=== PATIENT | male | born 2005 | race Hispanic/Latino ===

== ENCOUNTER 2025-03-10 21:23 | Emergency (ER) | payer SELFPAY ==
[~2025-03-10] VITALS: Ht 167.6 cm; Wt 69.4 kg
[2025-03-10] MEDS ORDERED: CHLO50 PO (21:33)
--- NOTE | 2025-03-10 21:34 | ERN ---
ED Note History of Present Illness Stated Complaint: C/O HICCUPS X 8 DAYS Chief Complaint: Hiccups/Singultis Time Seen by MD: 21:29 Dictation: PATIENT IS A 20-YEAR-OLD MALE COMING IN TODAY WITH COMPLAINTS OF INTRACTABLE HICCUPS THAT HE HAS HAD FOR EIGHT DAYS. NO NAUSEA VOMITING NO HISTORY OF DIABETES HYPERTENSION OR METABOLIC SYNDROME. HE HAS STATES HE DOES NOT HAVE A PRIMARY CARE DOCTOR. Allergies: Coded Allergies: No Known Drug Allergies (Unverified Allergy, Unknown, 03/10/25) Past Medical History RN Note Reviewed/Agreed w/PFSH: Yes Review of System Dictation CONSTITUTIONAL: NEGATIVE EXCEPT FOR HPI HEAD/FACE: NEGATIVE EXCEPT FOR HPI EENT: NEGATIVE EXCEPT FOR HPI RESPIRATORY: NEGATIVE EXCEPT FOR HPI HICCUPS GASTROINTESTINAL/ABDOMINAL: NEGATIVE EXCEPT FOR HPI GENITOURINARY: NEGATIVE EXCEPT FOR HPI MUSCULOSKELETAL: NEGATIVE EXCEPT FOR HPI INTEGUMENTARY: NEGATIVE EXCEPT FOR HPI NEUROLOGICAL/PSYCH: NEGATIVE EXCEPT FOR HPI HEMATOLOGIC/LYMPHATIC: NEGATIVE EXCEPT FOR HPI ALL SYSTEMS NEGATIVE, EXCEPT NOTED ABOVE. 13 POINT REVIEW OF SYSTEMS ASSESSED AND ALL NEGATIVE EXCEPT FOR ABOVE. Physical Exam Dictation VITAL SIGNS REVIEWED GENERAL APPEARANCE: ALERT, ORIENTED X 3, NO ACUTE DISTRESS, WELL DEVELOPED, NOURISHED. HEAD AND FACE: NON-TRAUMATIC. EYES: PERRL, PINK CONJUNCTIVAS, EYELID NO TRAUMA, ANTERIOR CHAMBER WITH ARCUS SENILIS. EARS: PINNAS INTACT AND NO SIGNS OF TRAUMA OR ERYTHEMA EAR CANALS CLEAR AND NO DISCHARGE TM NO ERYTHEMA NOSE: NO DISCHARGE, NO BLEEDING. OROPHARYNX: MOUTH NORMAL, TONGUE PINK, PHARYNX CLEAR,NO ERYTHEMA, TONSILS NO EXUDATES, NO ABSCESSES NOTED, MUCOUS MEMBRANE MOIST NECK: SUPPLE, NON-TENDER, NO THYROMEGALY, NO MASSES, NO JVD, NO BRUITS BREAST:DEFERRED CHEST:NO TENDERNESS, NO CREPITUS, NO PARADOXICAL MOVEMENT, NO RETRACTIONS HICCUPS LUNGS:CLEAR, WELL-VENTILATED, SYMMETRIC, NO RALES, NO WHEEZING, NO RHONCHI, NO STRIDOR, GOOD BREATH SOUNDS BILATERALLY HEART: REGULAR RATE, REGULAR RHYTHM, NO MURMUR, NO GALLOPS VASCULAR: NO PERIPHERAL EDEMA, ABDOMEN: SOFT, POSITIVE BOWEL SOUNDS, NONDISTENDED, NO GUARDING, NONTENDER, NO REBOUND, NO MASSES NO HEPATOMEGALY, NO SPLENOMEGALY, NO MCGOVERN'S SIGN, NO HERNIAS. RECTAL: DEFERRED GENITAL: DEFERRED NEUROLOGICAL: NORMAL SPEECH, MOTOR FUNCTION INTACT, SENSORY FUNCTION INTACT MUSCULOSKELETAL: NECK NONTENDER, FULL RANGE OF MOTION, BACK NONTENDER, FULL RANGE OF MOTION, EXTREMITIES: NONTENDER, FULL RANGE OF MOTION SKIN: COLOR PINK, DRY, NO TURGOR, NO RASH, NO LACERATIONS, NO ABRASIONS, NO CONTUSIONS. LYMPHATIC: DEFERRED Results (Laboratory/Radiology) Labs Reviewed?: Yes ED Course ED Course 2129/PATIENT TOLD HE WILL BE TREATED EMPIRICALLY HICCUPS WITH THORAZINE. HE WAS ALSO GIVEN A LIST OF THE DOCTORS ON STAFF TO FOLLOW UP IN THE NEXT 1-2 DAYS. HE WAS ALSO STRONGLY ADVISED TO NOT OPERATE A MOTORIZED VEHICLE WHILE TAKING THORAZINE. STATES HIS UNCLE IS GIVING HIM A RIDE HOME. Medical Decision Making MDM MEDICAL DISCHARGE MAKING WE WILL BE BASED ON EMPIRIC TREATMENT FOR INTRACTABLE HICCUPS. NO LABS OR IMAGING PATIENT GIVEN LIST OF LOCAL PRIMARY CARE DOCTORS ON STAFF. PRESCRIPTION FOR THORAZINE STRICT NO DRIVING INSTRUCTIONS WHILE HE IS TAKING THORAZINE DX & DISP Disposition: Discharge Departure Impression: Primary Impression: Intractable hiccoughs Condition: Stable Scripts Chlorpromazine HCl (Thorazine) 50 Mg Tab 1 TAB PO TID for HICCUPS, #30 TAB 0 Refills Prov: MICHELLE HERNANDEZ [employer] MANAGER 03/10/25 Additional Instructions: FOLLOW-UP WITH PRIMARY CARE PROVIDER IN 1 TO 2 DAYS. TAKE MEDICATIONS DIRECTED HERE IN THE EMERGENCY ROOM. OKAY TO CONTINUE HOME MEDICATIONS UNLESS OTHERWISE DISCUSSED DURING YOUR VISIT IN THE EMERGENCY ROOM TODAY. RETURN TO YOUR NEAREST EMERGENCY ROOM IF SYMPTOMS WORSEN OR IF THERE IS NO IMPROVEMENT. CALL 911 IF YOU NEED IMMEDIATE ASSISTANCE. TAKE TYLENOL OR MOTRIN OVER-THE- COUNTER NEEDED AND IF NO CONTRAINDICATIONS ARE PRESENT. INCREASE ORAL HYDRATION. A WOUND CULTURE OR URINE CULTURE WAS ORDERED HERE IN THE EMERGENCY ROOM DEPARTMENT PLEASE FOLLOW-UP WITH PRIMARY CARE PROVIDER AND ADVISE THEM TO GET REPEAT PORTS FROM OUR FACILITY. IF YOU HAD ANY MONICA WRAP/SPLINTS THAT WERE APPLIED HERE, PLEASE DO NOT REMOVE THEM UNTIL YOU SEE YOUR PRIMARY CARE OR SPECIALTY. TAKE THORAZINE EVERY 8 HOURS NEEDED FOR HICCUPS. INCREASE YOUR WATER INTAKE. DO NOT OPERATE A MOTORIZED VEHICLE WHILE TAKING THORAZINE. FOLLOW UP WITH ONE OF THE DOCTORS ON THE LIST PROVIDED YOU IN THE NEXT 1-2 DAYS. Referrals: SELF,REFERRAL (PCP) Time of Disposition: 21:32 I have reviewed the case, and I agree with, Diagnosis and Plan MICHELLE HERNANDEZ NP Mar 10, 2025 21:34
[2025-03-10 21:51] VITALS: BP 130/60; PULSE 86; RESP 16; TEMP 98.3; O2SAT 98
== END 2025-03-10 21:56 | disposition home or self-care (01) ==
LOC: EDH 21:23
DX: R06.6 Hiccough (principal)
CPT/HCPCS: 99283